=== PATIENT | female | born 1995 ===

== ENCOUNTER 2023-04-20 13:52 | Emergency (ER) | payer MEDICAID ==
[~2023-04-20] VITALS: Ht 167.6 cm; Wt 90.7 kg
[2023-04-20 14:12] VITALS: TEMP 99.6; O2SAT 100
[2023-04-20 15:29] LABS: HEMATOCRIT. 29.5 % (36.0-48.0); HEMOGLOBIN. 9.9 g/dL (12.0-16.0); MEAN CORPUSCULAR VOLUME 83.3 fL (81.0-99.0); MEAN PLATELET VOLUME 9.3 fl (7.4-10.4); PLATELET 174 x1000/uL (130-400); RED BLOOD CELL COUNT 3.54 mill/uL (4.2-5.4); RED CELL DISTRIBUTION WIDTH 13.3 % (11.6-14.6)
[2023-04-20 15:35] LABS: CHLORIDE 105 mEq/L (98-107)
[2023-04-20 16:00] LABS: B-HCG QUANTITATIVE 11509 mIU/mL (<3)
[2023-04-20 17:05] LABS: PLATELET ESTIMATE NORMAL
[2023-04-20 18:46] LABS: BASOPHILS % 0.1 % (0.0-2.0); HEMATOCRIT. 27.5 % (36.0-48.0); HEMOGLOBIN. 9.4 g/dL (12.0-16.0); LYMPHOCYTES % 8.4 % (20.0-50.0); MEAN CORPUSCULAR HEMOGLOBIN 28.2 pg (28.0-32.0); MEAN CORPUSCULAR VOLUME 82.7 fL (81.0-99.0); MEAN PLATELET VOLUME 9.1 fl (7.4-10.4); MONOCYTES % 4.9 % (2.0-8.0); NEUTROPHILS % 86.6 % (40.0-76.0); PLATELET 182 x1000/uL (130-400); RED BLOOD CELL COUNT 3.32 mill/uL (4.2-5.4); RED CELL DISTRIBUTION WIDTH 13.2 % (11.6-14.6)
[2023-04-20 19:49] VITALS: BP 110/68; PULSE 80; RESP 20
== END 2023-04-20 19:49 | disposition home or self-care (01) ==
LOC: ER 13:52
DX: N93.8 Other specified abnormal uterine and vaginal bleeding (principal)
CPT/HCPCS: 36415; 76801; 80053; 84702; 85025; 86850; 86900; 99284